=== PATIENT | male | born 1960 | race Caucasian/White ===

== ENCOUNTER → 2022-11-02 09:44 | Outpatient (CLI) | payer OTHER, SELFPAY ==
--- NOTE | 2022-11-02 | DI.RAD.S_ITS ---
PROCEDURE: XR ANKLE LT MIN 3V INDICATIONS: JOINT PAIN TECHNIQUE: 3 views of the ankle were acquired. COMPARISON: [facility], , ANKLE 3 VIEWS LEFT, 05/24/2007, 10:06. FINDINGS: Bones: No fractures or dislocations. Ankle mortise is normally aligned. No suspicious bony lesions. Soft tissues: No tibiotalar joint effusion. Achilles tendon appears normal. IMPRESSION: Normal left ankle radiographs Approved by: Valdemar Guillermo M.D. on 11/02/2022 at 11:28
--- NOTE | 2022-11-02 | DI.RAD.S_ITS ---
PROCEDURE: XR HIP W PEL IF DONE LT 2V INDICATIONS: JOINT PAIN TECHNIQUE: 2 views of the hip were acquired. COMPARISON: None. FINDINGS: Bones: No fractures or dislocations. No suspicious bony lesions. The visualized pelvic ring appears intact. Mild bilateral hip joint space narrowing subchondral sclerosis Soft tissues: No suspicious soft tissue calcifications or masses. IMPRESSION: Mild bilateral hip osteoarthritis Approved by: Valdemar Guillermo M.D. on 11/02/2022 at 11:29
== END ==
PROVIDERS: Referring Provider Family Medicine; Visit Provider Family Medicine
DX: M25.50 Pain in unspecified joint (principal); M16.0 Bilateral primary osteoarthritis of hip
CPT/HCPCS: 73502; 73610

== ENCOUNTER → 2023-02-17 10:50 | Outpatient (CLI) | payer OTHER, SELFPAY ==
--- NOTE | 2023-02-17 | DI.RAD.S_ITS ---
PROCEDURE: XR SHOULDER RT MIN 2V INDICATIONS: Pain in right shoulder TECHNIQUE: 3 views of the shoulder were acquired. COMPARISON: [facility], HANG, XR CLAVICLE RT, 02/17/2023, 10:48. [facility], , SHOULDER MINIMUM 2 VIEW LEFT, 05/24/2007, 10:06. FINDINGS: Bones: No fractures or dislocations. No suspicious bony lesions. Visualized ribs appear intact. Mild glenohumeral joint degenerative change. Soft tissues: No suspicious soft tissue calcifications. IMPRESSION: No evidence acute bony abnormality. If clinical suspicion and/or symptoms persist, further assessment with repeat plain films, or advanced imaging (e.g., CT, MRI, or bone scan) may be helpful for further assessment. Dictated by: Quinten Wiseman M.D. on 02/17/2023 at 12:28 Approved by: Quinten Wiseman M.D. on 02/17/2023 at 12:29
--- NOTE | 2023-02-17 | DI.RAD.S_ITS ---
PROCEDURE: XR CLAVICLE RT INDICATIONS: Pain in right shoulder TECHNIQUE: 2 views of the clavicle were acquired. COMPARISON: None. FINDINGS: Bones: No fractures or dislocations. No suspicious bony lesions. Soft tissues: No suspicious soft tissue calcifications. IMPRESSION: No evidence acute bony abnormality. Dictated by: Quinten Wiseman M.D. on 02/17/2023 at 12:27 Approved by: Quinten Wiseman M.D. on 02/17/2023 at 12:28
== END ==
PROVIDERS: PCP Family Medicine; Referring Provider Family Medicine; Visit Provider Family Medicine
DX: M25.511 Pain in right shoulder (principal)
CPT/HCPCS: 73000; 73030

== ENCOUNTER → 2024-05-03 09:47 | Outpatient (CLI) | payer OTHER, SELFPAY ==
--- NOTE | 2024-05-03 09:50 | DI.RAD.S_ITS ---
PROCEDURE: XR KNEE RT 3V INDICATIONS: osteoarthritis TECHNIQUE: 3 views of the knee were acquired. COMPARISON: None. FINDINGS: Bones: No fractures or dislocations. Anyf-he-dhsjssri tricompartmental osteoarthritis and joint space narrowing more notably in medial femoral tibial compartment. No suspicious bony lesions. Soft tissues: No significant joint effusion. Chondrocalcinosis is seen in medial and lateral femoral tibial compartments. IMPRESSION: Wykf-nl-cvedcvmg tricompartmental osteoarthritis in right knee more notably in medial femoral tibial compartment. No fracture or dislocation. No significant joint effusion. Chondrocalcinosis in medial and lateral femoral tibial compartments. Dictated by: Constantino Gunter M.D. on 05/03/2024 at 13:55 Approved by: Constantino Gunter M.D. on 05/03/2024 at 13:56
--- NOTE | 2024-05-03 09:50 | DI.RAD.S_ITS ---
PROCEDURE: XR KNEE LT 3V INDICATIONS: osteoarthritis TECHNIQUE: 3 views of the knee were acquired. COMPARISON: None. FINDINGS: Bones: No fractures or dislocations. Erwo-hk-gzqmlpjm tricompartmental osteoarthritis is seen with joint space narrowing, subchondral sclerosis and tiny marginal osteophyte formation more notably in medial and lateral femoral tibial compartments. No significant patellar subluxation. No suspicious bony lesions. Soft tissues: No joint effusion. Chondrocalcinosis in medial and lateral femoral tibial compartments are seen. IMPRESSION: Btwx-xg-znsscewn tricompartmental osteoarthritis in left knee as above. No fracture or dislocation. No significant joint effusion. Dictated by: Constantino Gunter M.D. on 05/03/2024 at 13:54 Approved by: Constantino Gunter M.D. on 05/03/2024 at 13:55
== END ==
PROVIDERS: PCP Family Medicine; Referring Provider Family Medicine; Visit Provider Family Medicine
DX: M17.0 Bilateral primary osteoarthritis of knee (principal); M11.262 Other chondrocalcinosis, left knee; M11.261 Other chondrocalcinosis, right knee; M16.9 Osteoarthritis of hip, unspecified
CPT/HCPCS: 73562

== ENCOUNTER → 2024-05-09 11:06 | Outpatient (CLI) | payer OTHER, SELFPAY ==
--- NOTE | 2024-05-09 | DI.MRI.S_ITS ---
PROCEDURE: MR SHOULDER LT WO CON INDICATIONS: Pain in left shoulder TECHNIQUE: Noncontrast oblique coronal T2 fast spin echo with fat saturation, oblique sagittal T1 spin echo and T2 fast spin echo with fat saturation, axial T1 spin echo and T2 fast spin echo with fat saturation through the shoulder. COMPARISON: None. FINDINGS: Image quality: Excellent. Rotator cuff: Moderate tendinosis of the supraspinatus with low-grade, combined, articular sided and interstitial tear at the anterior and mid fiber. The infraspinatus is unremarkable. The teres minor is unremarkable. Mild tendinosis of the subscapularis, without tear. No muscle edema. No fatty atrophy. Bones and bursae: Moderate degenerative changes acromioclavicular joint. Type 2 acromion. No os acromiale. Mild subacromial/subdeltoid bursitis. Mild subchondral marrow edema and subchondral cystic changes in the humeral head, reactive. No acute fracture. No focal chondral defect. Capsule and soft tissues: Superior labral tear. Diminutive posterior labrum. Inferior moderate tenosynovitis of the extra-articular biceps tendon, which is intact. The intra-articular biceps tendon is extremely diminutive, likely torn. Small glenohumeral effusion. Mild subcoracoid bursitis. IMPRESSION: 1. Moderate degenerative changes of the acromioclavicular joint. 2. Moderate tendinosis of the supraspinatus with low-grade tear. 3. Mild tendinosis of the subscapularis, without tear. 4. Superior labral tear. Diminutive posterior labrum. 5. Moderate tenosynovitis of the extra-articular biceps tendon. Extremely diminutive intra-articular biceps tendon, likely torn. Dictated by: Virginie Gonzalez M.D. on 05/10/2024 at 10:24 Approved by: Virginei Gonzalez M.D. on 05/10/2024 at 10:33
== END ==
PROVIDERS: PCP Family Medicine; Referring Provider Family Medicine; Visit Provider Family Medicine
DX: M75.112 Incomplete rotator cuff tear or rupture of left shoulder, not specified as traumatic (principal); S43.432A Superior glenoid labrum lesion of left shoulder, initial encounter; M16.9 Osteoarthritis of hip, unspecified; M65.812 Other synovitis and tenosynovitis, left shoulder; M25.412 Effusion, left shoulder; M75.52 Bursitis of left shoulder; M25.512 Pain in left shoulder
CPT/HCPCS: 73221

== ENCOUNTER 2024-06-27 12:50 | Day surgery (SDC) | payer OTHER, SELFPAY ==
--- NOTE | 2024-06-27 | PATH_ITS ---
[facility] Accession Number: [id number] No. of containers..01 Tissue . 01 Material submitted: . rectum - RECTAL POLYPS . 01 Diagnosis: RECTAL POLYPS, BIOPSY: Tubular adenoma. Additional colonic mucosa with no significant diagnostic alterations. MRV 06/28/2024 1637 Local . 01 Electronically signed: . Cecilia Giang MD, Pathologist NPI- [id number] . 01 Gross description: . RECTAL POLYPS: Received in formalin are 2 fragment(s) of garcia, soft tissue measuring 0.2 x 0.2 x 0.2 cm to 0.4 x 0.3 x 0.2 cm submitted entirely in 1 cassette(s) /ZAHEER 06/28/2024 0053 Local . 01 Pathologist provided ICD-10: D12.8 . 01 CPT . 619633 Specimen Comment: A courtesy copy of this report has been sent to [phone] Performed at: [address] [facility] [address], [place], [place] [id number] MD Evaristo Donovan MD Phone: [phone]
[2024-06-27 13:36] VITALS: BP 134/85; PULSE 85; RESP 12; TEMP 36.1; O2SAT 99
--- NOTE | 2024-06-27 14:35 | P.HP_ITS ---
History of Present Illness History of Present Illness Date Patient Seen: 06/27/24 Time Patient Seen: 14:35 Chief complaint: SDC Narrative: Dionicio is a 63-year-old man here for a colonoscopy. No known family history of colon cancer. [facility] Social History Smoking Status: Former smoker Meds Home Medications and Allergies Home Medications Medication Instructions Recorded Confirmed Type sodium,potassium,mag sulfates 17.5 See Rx Instructions PO .COMPLEX 05/14/24 Rx gram-3.13 gram-1.6 gram oral soln #354 mL (Suprep Bowel Prep Kit) amlodipine 7.5 mg PO DAILY 06/27/24 06/27/24 History atorvastatin 80 mg PO DAILY 06/27/24 06/27/24 History fenofibrate 145 mg PO DAILY 06/27/24 06/27/24 History meloxicam 15 mg PO DAILY 06/27/24 06/27/24 History Allergies Allergy/AdvReac Type Severity Reaction Status Date / Time No Known Drug Allergies Allergy Verified 06/27/24 13:46 Exam Vital Signs (past 8 hours): - 06/27/24 13:36 Temperature 97.0 F L Pulse Rate 85 Respiratory Rate 12 Blood Pressure 134/85 Pulse Oximetry 99 Oxygen Delivery Method Room Air Oxygen Delivery Method Room Air Const General: healthy appearing Assessment & Plan Assessment and plan (1) Colon cancer screening: Status: Acute Plan Colonoscopy Time-Based Coding :: [TOTAL MINUTES] spent with patient and on the chart (including review of chart, obtaining history, exam, reviewing outside data, placing orders, documenting exam and treatment plan, and counseling patient) on [DATE].
--- NOTE | 2024-06-27 15:12 | PM.OP.COLON ---
Operative Date/Time/Diagnoses Date of procedure: 06/27/24 Time of procedure: 15:12 Pre-op diagnosis: Colon cancer screening Post-op diagnosis: same Procedure & Clinicians Study performed: Colonoscopy Same procedure as scheduled: Yes Surgeon: Thomas Gonzalez Procedure Notes Procedure in detail: Surgeon: Thomas Gonzalez MD Anesthesia: Tash Stevens CRNA Procedure: The patient was brought to the endoscopy suite, placed in left lateral decubitus position. The patient was connected to monitoring devices. A time-out was performed. Sedation was administered. Once the patient was adequately sedated, a digital rectal exam was performed and was normal. The scope was then inserted and advanced to the cecum where the appendiceal orifice was identified and photographed. The scope was then slowly withdrawn over greater than 6 minutes. The mucosa was thoroughly inspected. There were 2 small polyps in the rectum removed with a forceps. The scope was retroflexed in the rectum. No other abnormalities were seen. The scope was straightened and removed. The patient was awakened and brought to recovery. Scope withdrawal time: 9 minutes Sedation time: 20 minutes EBL: 5 mL Findings: 2 small rectal polyps Post-procedure Disposition: PACU
[2024-06-27 15:13] VITALS: BP 101/72; PULSE 81; RESP 16; TEMP 36.2; O2SAT 94
[2024-06-27 15:18] VITALS: BP 104/71; PULSE 78; RESP 18; O2SAT 95
[2024-06-27 15:25] VITALS: BP 128/83; PULSE 89; RESP 16; O2SAT 96
[2024-06-27 15:30] VITALS: BP 112/84; PULSE 89; RESP 16; O2SAT 97
== END 2024-06-27 15:44 | disposition home or self-care (01) ==
PROVIDERS: PCP Family Medicine; Referring Provider Surgery; Visit Provider Surgery
PROC: 0DJD8ZZ Inspection of Lower Intestinal Tract, Via Natural or Artificial Opening Endoscopic (ICD-10-PCS; CPT 45378; principal; 2024-06-27 14:00)
DX: Z12.11 Encounter for screening for malignant neoplasm of colon (principal); D12.8 Benign neoplasm of rectum
CPT/HCPCS: 45380; J2704